=== PATIENT | female | born 1995 | race Caucasian/White ===

== ENCOUNTER 2017-10-18 15:15 | Emergency (ER) | payer OTHER, MEDICAID ==
[~2017-10-18] VITALS: Ht 157.5 cm; Wt 72.6 kg
[2017-10-18 15:20] VITALS: Ht 157.5 cm; Wt 72.6 kg
[2017-10-18 17:15] LABS: PLATELET COUNT 224 x10^3mcL (130-400); RED CELL DISTRIBUTION WIDTH 13.6 % (11.5-14.5)
[2017-10-18 17:17] LABS: BASOPHIL % 0 % (0-2)
[2017-10-18 17:28] LABS: CALCIUM 9.6 mg/dL (8.5-10.1); CARBON DIOXIDE 27.2 mmol/L (21-32); CHLORIDE SERUM 102 mmol/L (98-107); CREATININE SERUM 0.9 mg/dL (0.6-1.0); GFR1 > 60 mL/min; GLUCOSE SERUM 111 mg/dL (74-106); POTASSIUM SERUM 3.4 mmol/L (3.5-5.1); SODIUM SERUM 134 mmol/L (136-145)
[2017-10-18 17:32] LABS: UA SPECIFIC GRAVITY 1.025 (1.005-1.035); microscopic required? YES; urine erythrocyte 3+ (NEGATIVE)
[2017-10-18 17:41] LABS: ALBUMIN 4.2 g/dL (3.4-5.0); ALKALINE PHOSPHATASE 91 U/L (46-116); ALT/SGPT 32 U/L (14-59); AST/SGOT 18 U/L (15-37); BILIRUBIN TOTAL 0.21 mg/dL (0.20-1.00); CHOLESTEROL 165 mg/dL (<200); LIPASE 127 IU/L (73-393); TRIGLYCERIDES 100 mg/dL (<150)
[2017-10-18 17:42] LABS: T3 TOTAL 2.15 ng/mL
[2017-10-18 17:46] LABS: CHOLESTEROL/HDL RATIO 2.4; HDL CHOLESTEROL 69 mg/dL (40-60); TOTAL PROTEIN, SERUM 8.8 g/dL (6.4-8.2)
[2017-10-18 18:07] LABS: FREE T4 0.91 ng/dL (0.76-1.46); FREE THYROXINE INDEX 2.9 ug/dL (1.4-4.5); T4(THYROXINE) 11.3 ug/dL (4.7-13.3)
[2017-10-18 18:40] VITALS: BP 118/64
== END 2017-10-18 18:40 | disposition home or self-care (01) ==
LOC: ED 15:15
PROVIDERS: Specialist
DX: R07.89 Other chest pain (principal); J98.01 Acute bronchospasm
CPT/HCPCS: 83880; 84439; J7030; J7620